=== PATIENT | male | born 1970 | race Caucasian/White ===

== ENCOUNTER 2019-08-11 16:55 | Emergency (ER) | payer MEDICARE ==
[2019-08-11 17:13] VITALS: BP 129/84
[2019-08-11] MEDS ORDERED: ACETAMINOPHEN 325 MG TABLET PO ONE (17:27)
--- NOTE | 2019-08-11 17:27 | ER Document Report ---
ED Medical Screen (RME) - General Chief Complaint: Neck Pain >24hrs old Stated Complaint: NECK PAIN Time Seen by Provider: 08/11/19 17:25 Mode of Arrival: Ambulatory Information source: Patient Notes: 49-year-old male presents to ED for complaint of neck pain. He states it feels like [id number]. He states he had to have a fusion in his lower back and the doctor told him at some point it would go up to his neck. He has not been to his doctor since the pain started. He states it is been hurting for about a week. He states he has not had any injuries to the neck. He is alert oriented respirations regular nonlabored speaking in full sentences. I have greeted and performed a rapid initial assessment of this patient. A comprehensive ED assessment and evaluation of the patient, analysis of test results and completion of medical decision making process will be conducted by an additional ED providers. - Related Data Allergies/Adverse Reactions: No Known Allergies Allergy (Verified 08/11/19 17:22) Home Medications: bupropion. gabapentin. lisinopril. hydrochlorithiazide Past Medical History - Social History Frequency of alcohol use: None Drug Abuse: Marijuana Physical Exam - Vital signs Vitals: Temp Pulse Resp BP Pulse Ox 97.3 F 103 H 20 129/84 H 98 08/11/19 17:11 08/11/19 17:11 08/11/19 17:11 08/11/19 17:11 08/11/19 17:11 Course - Vital Signs Vital signs: Temp Pulse Resp BP Pulse Ox 97.3 F 103 H 20 129/84 H 98 08/11/19 17:11 08/11/19 17:11 08/11/19 17:11 08/11/19 17:11 08/11/19 17:11
--- NOTE | 2019-08-11 18:05 | RADIOLOGY REPORT (SQ) ---
EXAM DESCRIPTION: CERV SP 4 OR 5 VIEWS COMPLETED DATE/TIME: 08/11/2019 5:53 pm REASON FOR STUDY: pain in neck feels like bone on bone no injury COMPARISON: None. NUMBER OF VIEWS: 7 views including obliques. TECHNIQUE: AP, lateral, obliques and odontoid radiographic images acquired of the cervical spine. LIMITATIONS: None. FINDINGS: MINERALIZATION: Normal. ALIGNMENT: Normal. VERTEBRAE: Maintained height. No fracture or worrisome bone lesion. AP elongation consistent with s pondylotic change. DISCS: Multilevel disc space narrowing with osteophytes. POSTERIOR ELEMENTS: Pedicles and facets are intact. No posterior arch defects. Facet arthropathy is present. FORAMINA: Narrowed at the levels of maximal disc and facet disease. HARDWARE: None in the spine. PARASPINAL SOFT TISSUES: Normal. OTHER: No other significant finding. IMPRESSION: Multilevel spondylotic changes. No discrete radiopaque foreign body is demonstrated; it should be noted that cervical spine imaging is not optimized for evaluation of the cervical soft tis sues. Soft tissue neck radiographs afford improved characterization of the cervical soft tissues. TECHNICAL DOCUMENTATION: JOB ID: [id number] [employer]- All Rights Reserved Reading location - IP/workstation name: [email or web address]
--- NOTE | 2019-08-11 18:34 | ER Document Report ---
HPI - HPI Patient complains to provider of: neck pain Time Seen by Provider: 08/11/19 17:25 Onset: Last week Onset/Duration: Sudden Quality of pain: Achy Severity: Severe Pain Level: 4 Context: This 49-year-old male presents emergency department with complaints of neck pain. Denies trauma. Reports it feels like it is [id number]. Reports history of fusion from his hips to his lower back multiple years ago done by Dr. Junior at [place]. He reports he was told at that time that he would probably need surgery on his neck. He denies paresthesia. Denies urinary bowel incontinence or retention. Denies fever vomiting diarrhea. Patient was here visiting his daughter. He lives in [place]. Does not admit to any recent medications. Associated Symptoms: None Exacerbated by: Denies Relieved by: Denies Similar symptoms previously: Yes Recently seen / treated by doctor: No - REPRODUCTIVE Reproductive: DENIES: : Past Medical History - General Information source: Patient - Social History Smoking Status: Current Every Day Smoker Cigarette use (# per day): Yes Frequency of alcohol use: None Drug Abuse: Marijuana Occupation: disability due to back Family History: None Patient has suicidal ideation: No Patient has homicidal ideation: No - Medical History Medical History: Negative Past Surgical History: Reports: Hx Orthopedic Surgery - back surgery Vertical Provider Document - CONSTITUTIONAL Agree With Documented VS: Yes Exam Limitations: No Limitations General Appearance: WD/WN, No Apparent Distress - HEENT HEENT: Atraumatic, Normocephalic - NECK Neck: Normal Inspection - No obvious deformity. No erythema, no warmth, no swelling. Patient turns head side to side without problems. Chin to chest without problems no weakness., Supple - RESPIRATORY Respiratory: Breath Sounds Normal, No Respiratory Distress - MUSCULOSKELETAL/EXTREMETIES Musculoskeletal/Extremeties: ASHLY AMES - NEURO Level of Consciousness: Awake, Alert, Appropriate Motor/Sensory: No Motor Deficit - DERM Integumentary: Warm, Dry Course - Re-evaluation Re-evalutation: 08/11/19 18:33 49-year-old male with history of back surgery presents emergency department with complaints of neck pain that started approximately 1 week ago. Denies trauma. Reports when he had his back surgery he was told that it would eventually need to have neck surgery. Denies recent medications. CT shows multilevel spondyl itic changes. Review of [place] controlled substance shows patient just received diazepam by his primary care provider on August 09, 2 days ago. Patient was instructed on the importance of follow-up with his primary care provider. He will be given a copy of the CT and also given Toradol. He was instructed to take Motrin for the pain. He verbalized understanding to all instructions. Cervical Spine X-Ray 08/11/19 17:27 IMPRESSION: Multilevel spondylotic changes. No discrete radiopaque foreign body is demonstrated; it should be noted that cervical spine imaging is not optimized for evaluation of the cervical soft tissues. Soft tissue neck radiographs afford improved characterization of the cervical soft tissues. - Vital Signs Vital signs: Temp Pulse Resp BP Pulse Ox 97.3 F 103 H 20 129/84 H 98 08/11/19 17:11 08/11/19 17:11 08/11/19 17:11 08/11/19 17:11 08/11/19 17:11 - Diagnostic Test Radiology reviewed: Image reviewed, Reports reviewed Discharge - Discharge Clinical Impression: Neck pain Condition: Stable Disposition: HOME, SELF-CARE Instructions: Use of [id number]-[id number] Ibuprofen ([facility]), Toradol Injection ([facility]) Additional Instructions: *You have been evaluated for neck, upper back pain *take motrin as indicated *Follow up with Dr Bloom Wednesday with the disc of your CT to discuss plan of care *Return to ED for worsening condition, changes, needs Forms: Elevated Blood Pressure
[2019-08-11] MEDS ORDERED: KETOROLAC TROMETHAMINE 60 MG/2 ML SDV IM ONE (18:46)
== END 2019-08-11 19:09 | disposition home or self-care (01) ==
LOC: ER 16:55
DX: M54.2 Cervicalgia (principal); F17.210 Nicotine dependence, cigarettes, uncomplicated; F12.10 Cannabis abuse, uncomplicated
CPT/HCPCS: 72050; A9270; J1885; 96372; 99283

== ENCOUNTER 2019-11-16 16:01 | Emergency (ER) | payer MEDICARE ==
[2019-11-16 16:17] VITALS: BP 121/78
[2019-11-16] MEDS ORDERED: DIAZEPAM 5 MG TABLET PO ONE (17:36)
[2019-11-16] MEDS ORDERED: KETOROLAC TROMETHAMINE 60 MG/2 ML SDV IM ONE (17:36)
--- NOTE | 2019-11-16 17:49 | ER Document Report ---
HPI - HPI Time Seen by Provider: 11/16/19 17:31 Pain Level: 4 Notes: Otherwise healthy 49-year-old male presenting to the emergency department chief complaint of back pain in the thoracic region. Patient denies any injury. 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 Denies any saddle anesthesia, denies any loss of control bowel or bladder movements. - REPRODUCTIVE Reproductive: DENIES: : Past Medical History - General Information source: Patient - Social History Smoking Status: Current Every Day Smoker Frequency of alcohol use: None Drug Abuse: Marijuana Family History: None Patient has suicidal ideation: No Patient has homicidal ideation: No - Medical History Medical History: Negative Past Surgical History: Reports: Hx Orthopedic Surgery - back Vertical Provider Document - CONSTITUTIONAL Notes: PHYSICAL EXAMINATION: GENERAL: Well-appearing, well-nourished and in no acute distress. HEAD: Atraumatic, normocephalic. EYES: Pupils equal round extraocular movements intact, conjunctiva are normal. ENT: Nares patent NECK: Normal range of motion LUNGS: No respiratory distress Musculoskeletal: Normal range of motion, tenderness in the paraspinous muscles of the thoracic region, no vertebral tenderness, step-off or deformity. NEUROLOGICAL: Normal speech, normal gait. PSYCH: Normal mood, normal affect. SKIN: Warm, Dry, normal turgor, no rashes or lesions noted. Course - Re-evaluation Re-evalutation: Patient with acute on chronic back pain. I did give him a dose of Valium here in the emergency department. I told him that we would not prescribe this as we do not treat chronic pain with controlled substances. I will prescribe him some Flexeril. He will be encouraged to follow-up with his primary care provider. No red flag signs to suggest emergent condition. - Vital Signs Vital signs: Temp Pulse Resp BP Pulse Ox 98.1 F 86 16 121/78 96 11/16/19 16:15 11/16/19 16:15 11/16/19 16:15 11/16/19 16:15 11/16/19 16:15 Discharge - Discharge Clinical Impression: Back pain Qualifiers: Back pain location: thoracic back pain Chronicity: chronic Back pain laterality: bilateral Qualified Code(s): M54.6 - Pain in thoracic spine Condition: Stable Disposition: HOME, SELF-CARE Additional Instructions: You were seen in the emergency department for an episode of chronic back pain. We gave you Valium and Toradol to help with your symptoms. You have been prescribed Flexeril. Please continue to keep any and all follow-up appointments with your primary care provider. Return to the emergency department if you develop loss of control of bowel movements or bladder. Prescriptions: Cyclobenzaprine HCl [Flexeril 10 mg Tablet] 10 mg PO TIDP PRN #15 tab PRN Reason:
== END 2019-11-16 18:19 | disposition home or self-care (01) ==
LOC: ER 16:01
DX: G89.29 Other chronic pain (principal); M54.6 Pain in thoracic spine; F17.200 Nicotine dependence, unspecified, uncomplicated; F12.10 Cannabis abuse, uncomplicated
CPT/HCPCS: 99283; 96372; A9270; J1885